=== PATIENT | female | born 1970 ===

== ENCOUNTER 2020-09-02 07:45 | Inpatient (IN) | payer OTHER ==
[~2020-09-02] VITALS: Ht 149.9 cm; Wt 86.2 kg
[2020-09-02] MEDS ORDERED: TOPROL XL25 M1 PO (09:44)
[2020-09-09] MEDS ORDERED: CABERGOLINE0.5 MG (15:27)
[2020-09-09] MEDS ORDERED: FLONASE16 GM (15:27)
== END 2020-09-10 11:18 | disposition home or self-care (01) | DRG 741 ==
LOC: O/R 09-09 05:30 → OB/GYN 09-09 05:30 → O/R 09-09 07:00 → OB/GYN 09-09 11:19
PROVIDERS: ADMIT Obstetrics & Gynecology Gynecologic Oncology; ATTEND Obstetrics & Gynecology Gynecologic Oncology
PROC: 0UT24ZZ Resection of Bilateral Ovaries, Percutaneous Endoscopic Approach (ICD-10-PCS; 2020-09-09)
PROC: 0UT74ZZ Resection of Bilateral Fallopian Tubes, Percutaneous Endoscopic Approach (ICD-10-PCS; 2020-09-09)
PROC: 07BC4ZZ Excision of Pelvis Lymphatic, Percutaneous Endoscopic Approach (ICD-10-PCS; 2020-09-09)
PROC: 0UT94ZZ Resection of Uterus, Percutaneous Endoscopic Approach (ICD-10-PCS; principal; 2020-09-09 07:00)
DX: C54.1 Malignant neoplasm of endometrium (principal); D25.1 Intramural leiomyoma of uterus; N80.0 Endometriosis of uterus; N83.12 Corpus luteum cyst of left ovary; N70.11 Chronic salpingitis